=== PATIENT | female | born 1955 | race Caucasian/White ===

== ENCOUNTER 2017-04-22 09:20 | Emergency (ER) | payer OTHER ==
[~2017-04-22] VITALS: Ht 149.9 cm; Wt 65.5 kg
[2017-04-22 09:25] VITALS: BP 167/92; PULSE 84; RESP 20; O2SAT 95
--- NOTE | 2017-04-22 09:36 | ED.REPORT ---
HPI-General Illness Date of Service Apr 22, 2017 ED Provider: Nakul Tinsley MD Pt is a 61 year old female who presents to the ED with concerns for chills, fevers and dizziness onset yesterday. She reports that this worried her because she has a history of heart disease and is currently on Plavix. She reports that this does not feel like it is cardiac related. Pt additionally reports mild urinary incontinence, which she has never experienced in the past. She denies any dysuria, cough, shortness of breath, chest pain, abdominal pain or any other symptoms. Pt describes her dizziness as a "spinning" sensation, but reports that it is positional and does not affect her vision. She reports that she has had this dizziness in the past, and was treated with "some kind of therapy". She has no other concerns. Nursing Notes Stated Complaint: DIZZINESS,CHILLS Chief Complaint: General Complaint Nursing Notes Reviewed: Yes Allergies: Coded Allergies: Sulfa (Sulfonamide Antibiotics) (Verified Allergy, Unknown, 04/22/17) azithromycin (Verified Allergy, Unknown, 04/22/17) clindamycin (Verified Allergy, Unknown, C-DIFF, 04/22/17) Scheduled PRN Meclizine (Bonine) 25 Mg Tab.chew 25 MG PO TID PRN PRN For Dizziness General Time Seen by MD: 09:34 Chief Complaint Dizziness Hx Obtained From: Patient, Spouse Sudden in Onset?: Yes Severity: Current: No pain currently Severity: Maximum: No pain Similar Sx Previous: Yes Past Medical History Past Medical History Heart disease Ambulatory Status Independent Review of Systems Full Review of Systems Constitutional: Reports: Chills, Fever, Denies: Malaise, Weakness - generalized Respiratory: Denies: Non-productive cough, Shortness of breath, Wheezing Cardiovascular: Denies: Chest pain GI: Reports: Nausea, Denies: Abdominal pain, Constipation, Diarrhea, Vomiting Female: Reports: Incontinence, Denies: Dysuria, Flank pain, Urinary frequency, Urinary urgency Skin: Reports Diaphoresis Neurologic: Reports: Dizziness, Denies: Abnormal movement, Change LOC, Headache, Syncope, Weakness Complete sys rev & neg: except as marked. Physical Exam Vital Signs Vital Signs Date Time Temp Pulse Resp B/P Pulse Ox O2 Delivery O2 Flow Rate FiO2 04/22/17 11:37 62 15 110/62 95 Room Air 04/22/17 10:33 68 132/62 92 04/22/17 10:33 77 120/65 94 04/22/17 10:33 81 126/65 93 04/22/17 09:25 37.8 84 20 167/92 95 Initial VS: Reviewed Head / Eyes: Atraumatic, Normocephalic, PERRL ENT: Mucous membranes moist, Conjunctiva normal, No scleral icterus Neck: Supple, Non-tender, Full range of motion Respiratory: Breath sounds normal, Clear to auscultation, No respiratory distress Cardiovascular: Regular rate & rhythm, Heart sounds normal, Intact distal pulses Abdomen / GI: Soft, Non-tender, No guarding, No rebound, No distention Skin: Warm, Dry, No cyanosis General/Constitutional: Awake, Alert, No acute distress, Well appearing, Well developed Holden Hallpike maneuver Neurologic: Oriented X3, Speech NL, No motor deficits, No sensory deficits, CN II - XII intact Strength is 5/5 in all 4 extremities Interpretation & Diagnostics Lab Results Interpretation Result Diagram: 04/22/17 1021 04/22/17 1021 Test 04/22/17 10:21 04/22/17 11:10 White Blood Count 8.4th/mm3 (3.8-10.1) Red Blood Count 4.47mil/mm3 (3.90-5.20) Hemoglobin 13.2g/dL (12.0-15.6) Hematocrit 39.8% (35.0-46.0) Mean Corpuscular Volume 89.0fL (81-100) Mean Corpuscular Hemoglobin 29.5pg (27.0-35.0) Mean Corpuscular Hemoglobin Concent 33.2% (32.0-37.0) Red Cell Distribution Width 12.4% (12.3-15.4) Platelet Count 163bil/L (150-400) Neutrophils (%) (Auto) 76.9% (40-74) Lymphocytes (%) (Auto) 12.9% (14-46) Monocytes (%) (Auto) 9.6% (4-12) Eosinophils (%) (Auto) 0.1% (0-5) Basophils (%) (Auto) 0.4% (0-3) Sodium Level 134mEq/L (134-144) Potassium Level 3.6mEq/L (3.5-5.2) Chloride Level 99mEq/L (97-108) Carbon Dioxide Level 20mmol/L (18-29) Blood Urea Nitrogen 16mg/dL (8-27) Creatinine 0.99mg/dL (0.57-1.00) Estimat Glomerular Filtration Rate 81mL/min (>59) Glucose Level 148mg/dL (60-99) Calcium Level 8.5mg/dL (8.5-10.1) Hold Andrea Top Tube Received (Received) Hold Urine Received (Received) ECG Interpretation ECG Interpretation: SR - 65 T wave inversions in 3, V1, V2 No previous available Time: 10:28 Interpreted by: ED physician Re-Eval/Medical Decision Med Decision/Clinical Course 61-year-old female presenting complaining of vertigo and dizziness times several days. Reports it is positional. She has no other focal neuro complaints or deficits on exam. Her Holden-Hallpike is positive. Patient declined CT. Her labs are stable. Patient felt much better after repositioning maneuvers. Likely benign positional vertigo. We will prescribe meclizine. She understands we cannot rule out stroke without CT had but she declines. Patient discharged home with return precautions if any new or worsening symptoms or if she desires further workup. Source of Hx: Old records Time of Eval: 11:20 Re-Evaluation/Progress Note: Pt is rechecked and informed of her lab results and the plan to discharge her at this time. She understands and agrees, all questions are addressed. Counseled Regarding: Diagnosis, Lab results, Need for follow-up, When/why to return to ED Discharge & Departure Primary Impression: Positional vertigo Laterality: unspecified laterality Qualified Code: H81.10 - Benign paroxysmal vertigo, unspecified ear Disposition: Home Discharge Condition All VS Reviewed: Yes Condition: Stable Patient Instructions: Vertigo (ED) Additional Instructions: All of your tests today were reassuring. It appears that you have vertigo. Physical therapy can help control your symptoms. Take the medications as prescribed and follow up with your primary care provider later this week. Return with any worsening or concerning symptoms. Scribe Attestation Portions of this note were transcribed by Kristine Curran. I, Dr. Tinsley personally performed the history, physical exam and medical decision-making; I reviewed and confirmed the accuracy of the information in the transcribed note. Signed by: Estuardo Gamble, 04/22/2017 11:21. Nakul Tinsley MD Apr 22, 2017 09:36 RALEIGH CURRAN Apr 22, 2017 10:11
[2017-04-22 10:29] LABS: BASOPHILS % (AUTO) 0.4 % (0-3); EOSINOPHILS % (AUTO) 0.1 % (0-5); MONOCYTES % (AUTO) 9.6 % (4-12); Mean Corpuscular Hemoglobin 29.5 pg (27.0-35.0); NEUTROPHILS % (AUTO) 76.9 % (40-74); Platelet Count 163 bil/L (150-400)
[2017-04-22 10:33] VITALS: BP_SYST 120; BP_SYST 126; BP_SYST 132; BP_DIAS 62; BP_DIAS 65; PULSE 68; PULSE 77; PULSE 81; O2SAT 92; O2SAT 93; O2SAT 94
[2017-04-22] MEDS ORDERED: MECL-114 PO (11:23)
[2017-04-22 11:37] VITALS: BP 110/62; PULSE 62; RESP 15; O2SAT 95
[2017-04-23] MEDS ORDERED: LEVO750T9 PO (13:08)
[2017-04-23] MEDS ORDERED: BENZ-12 PO (14:53)
== END 2017-04-22 11:25 | disposition home or self-care (01) ==
LOC: SED 09:20
DX: H81.10 Benign paroxysmal vertigo, unspecified ear (principal); Z79.01 Long term (current) use of anticoagulants; Z88.1 Allergy status to other antibiotic agents; Z88.2 Allergy status to sulfonamides; I51.9 Heart disease, unspecified